=== PATIENT | male | born 1985 | race American Indian/Alaskan Native ===

== ENCOUNTER 2017-10-29 20:05 | Emergency (ER) | payer SELFPAY ==
[2017-10-29] MEDS ORDERED: Azithromycin 250 MG Tab PO ONE (21:43)
[2017-10-29] MEDS ORDERED: Acyclovir 200 MG Cap PO ONE (21:49)
[2017-10-29] MEDS ORDERED: Lidocaine 2% Jelly 10 ML Urojet MUCMEM ONE (21:50)
[2017-10-29] MEDS ORDERED: cefTRIAXone 250 MG, Lidocaine 1% 0.9 ML IM ONE ×2 (21:53)
--- NOTE | 2017-10-29 22:32 | EDM.PDOC ---
ED HPI GENERAL MEDICAL PROBLEM - General Chief Complaint: Genitourinary Problem Stated Complaint: PAIN [id number] Time Seen by Provider: 10/29/17 21:30 Source of Information: Reports: Patient History Limitations: Reports: No Limitations - History of Present Illness INITIAL COMMENTS - FREE TEXT/NARRATIVE: ED with c/o burning with urination and sores on penis. Unprotected sex and current SO has same symptoms. Penis Pain Score (Numeric/FACES): 5 - Related Data Allergies Allergy/AdvReac Type Severity Reaction Status Date / Time Penicillins Allergy Swelling Verified 10/29/17 20:47 Home Meds: Home Meds . [No Known Home Meds] 10/29/17 [History] Past Medical History - Past Health History Medical/Surgical History: Denies Medical/Surgical History Social & Family History - Tobacco Use Smoking Status *Q: Current Every Day Smoker Years of Tobacco use: 5 Packs/Tins Daily: 0.5 - Caffeine Use Caffeine Use: Reports: Coffee, Soda, Tea - Recreational Drug Use Recreational Drug Use: No ED ROS GENERAL - Review of Systems Review Of Systems: See Below Constitutional: Reports: No Symptoms HEENT: Reports: No Symptoms Respiratory: Reports: No Symptoms Cardiovascular: Reports: No Symptoms GI/Abdominal: Reports: No Symptoms : Reports: Dysuria, Pain, Other (sores) ED EXAM, RENAL/ - Physical Exam Exam: See Below Exam Limited By: No Limitations General Appearance: Alert, No Apparent Distress Ears: Normal External Exam Throat/Mouth: Normal Voice Head: Atraumatic, Normocephalic Respiratory/Chest: No Respiratory Distress Cardiovascular: Regular Rate, Rhythm GI/Abdominal: Soft (Male) Exam: Penile Lesions (large ulceraction to end of penis, multiple small scabbed lesion to mid dorsal shaft). No: Scrotum Tenderness (L), Scrotum Tenderness (R) Course - Vital Signs Last Recorded V/S: Last Vital Signs Temp 99.2 F 10/29/17 20:44 Pulse 100 10/29/17 20:44 Resp 16 10/29/17 20:44 BP 147/65 H 10/29/17 20:44 Pulse Ox 97 10/29/17 20:44 - Orders/Labs/Meds Labs: Laboratory Tests 10/29/17 10/29/17 Range/Units 20:35 20:35 Urine Color Yellow (YELLOW) Urine Appearance Clear (CLEAR) Urine pH 7.0 (5.0-9.0) Ur Specific [place] 1.025 (1.005-1.030) Urine Protein Trace H (NEGATIVE) Urine Glucose (UA) Negative (NEGATIVE) Urine Ketones Trace H (NEGATIVE) Urine Occult Blood Negative (NEGATIVE) Urine Nitrite Negative (NEGATIVE) Urine Bilirubin Negative (NEGATIVE) Urine Urobilinogen 0.2 (0.2-1.0) mg/dL Ur Leukocyte Esterase Trace H (NEGATIVE) Urine RBC 0-5 /HPF Urine WBC 20-30 H (0-5/HPF) /HPF Ur Epithelial Cells Occasional /HPF Calcium Oxalate Crystal Few H /HPF Urine Bacteria Moderate H (0-FEW/HPF) /HPF Urine Mucus Moderate H /LPF Chlamydia/GC Source Urine C.trachomatis RNA (TMA) Negative (Negative) N.gonorrhoeae RNA (TMA) Positive H (Negative) Meds: Medications Discontinued Medications Generic Name Dose Route Start Last Admin Trade Name Freq PRN Reason Stop Dose Admin Acyclovir 400 mg 10/29/17 21:49 10/29/17 21:52 Zovirax PO 10/29/17 21:50 400 mg ONETIME ONE Administration Azithromycin 1,000 mg 10/29/17 21:43 10/29/17 21:50 Zithromax PO 10/29/17 21:44 1,000 mg ONETIME ONE Administration Ceftriaxone Sodium 250 mg/ 0 mg 10/29/17 21:53 10/29/17 22:04 Lidocaine HCl 0.9 ml IM 10/29/17 21:54 2.1 inj ONETIME ONE Administration Lidocaine HCl 10 ml 10/29/17 21:50 10/29/17 22:04 Xylocaine 2% Jelly MUCMEM 10/29/17 21:51 10 ml ONETIME ONE Administration - Re-Assessments/Exams Free Text/Narrative Re-Assessment/Exam: 11/01/17 06:52 patient left without written prescription. Departure - Departure Time of Disposition: 22:30 Disposition: [facility] 07 Condition: Good Clinical Impression: STD (sexually transmitted disease) - Discharge Information Instructions: Sexually Transmitted Disease Forms: ED Department Discharge Additional Instructions: practice safe sex, use condoms acyclovir 400mg one four times daily for one week follow with primary care if symptoms worsen, increased lesions or pain if recurrent outbreaks may need to doscuss ongoing medication to prevent outbreaks
== END 2017-10-29 23:05 | disposition left against medical advice (07) ==
LOC: DL.ED 20:05
DX: A64 Unspecified sexually transmitted disease (principal); F17.210 Nicotine dependence, cigarettes, uncomplicated; Z88.0 Allergy status to penicillin
CPT/HCPCS: 81001; 86694; 86695; 86696; 87491; 87591; 99283; A9270; J0696; 36415

== ENCOUNTER 2022-01-07 20:08 | Emergency (ER) | payer OTHER ==
[2022-01-07] MEDS ORDERED: Naloxone 2 MG/2 ML Syringe IVPUSH ONE (20:29)
[2022-01-07] MEDS ORDERED: Sodium Chloride 0.9% 10 ML Syringe FLUSH PRN (20:31)
[2022-01-07] MEDS ORDERED: Sodium Chloride 0.9% 1,000 ML IV ONE (20:32)
[2022-01-07 21:04] LABS: ANION GAP 8.8 mEq/L (7-13); CHLORIDE,CL 104 mmol/L (98-107); SODIUM,NA 138 mmol/L (136-145)
[2022-01-07 21:15] LABS: ESTIMATED GFR 69 mL/min (>=60)
[2022-01-07 21:18] LABS: AMPHETAMINES,URINE NEGATIVE (NEGATIVE); BARBITURATES,URINE NEGATIVE (NEGATIVE); BENZODIAZEPINE,URINE NEGATIVE (NEGATIVE); MDMA (ECSTASY), URINE NEGATIVE (NEGATIVE); METHADONE,URINE NEGATIVE (NEGATIVE); METHAMPHETAMINES,URINE POSITIVE (NEGATIVE); OPIATES,URINE NEGATIVE (NEGATIVE); OXYCODONE,URINE NEGATIVE (NEGATIVE); PHENCYCLIDINE,URINE NEGATIVE (NEGATIVE); TCA,URINE NEGATIVE (NEGATIVE)
== END 2022-01-07 22:04 ==
LOC: DL.ED 20:08
DX: T40.412A Poisoning by fentanyl or fentanyl analogs, intentional self-harm, initial encounter (principal); S01.112A Laceration without foreign body of left eyelid and periocular area, initial encounter; F19.10 Other psychoactive substance abuse, uncomplicated; F17.210 Nicotine dependence, cigarettes, uncomplicated; Z88.0 Allergy status to penicillin
CPT/HCPCS: 12011; 36415; 80053; 80305; 80307; 81001; 83735; 85025; 96361; 96374; 99284; J2310; J7030; 99283